=== PATIENT | male | born 2000 | race Caucasian/White ===

== ENCOUNTER 2023-03-09 13:44 | Emergency (ER) | payer MEDICAID ==
[~2023-03-09] VITALS: Ht 175.3 cm; Wt 80.7 kg
[2023-03-09 14:13] VITALS: BP 129/71; PULSE 90; RESP 18; TEMP 98.8; O2SAT 99
[2023-03-09] MEDS ORDERED: ALUMINUM HYD/MAG/SIMETHICONE 30 ML UDC PO ONE (15:20)
[2023-03-09] MEDS ORDERED: FAMOTIDINE 20 MG TAB PO ONE (15:20)
[2023-03-09 16:08] VITALS: O2SAT 99
[2023-03-09 16:11] LABS: BASOPHILS # (AUTO) 0.1 K/uL (0.00-0.22); BASOPHILS % (AUTO) 0.7 % (0.0-2.0); EOSINOPHILS % (AUTO) 0.2 % (0.0-4.0); HEMATOCRIT 48.1 % (36-52); HEMOGLOBIN 16.6 g/dL (12.0-18.0); LYMPHOCYTES % (AUTO) 18.9 % (20.5-51.1); MEAN CORPUSCULAR HEMOGLOBIN 30 pg (27-31); MEAN CORPUSCULAR HGB CONC 34 g/dL (33-37); MEAN CORPUSCULAR VOLUME 87.2 fL (80-94); MONOCYTES # (AUTO) 0.7 K/uL (0.8-1.0); MONOCYTES % (AUTO) 6.8 % (1.7-9.3); NEUTROPHILS # (AUTO) 7.7 K/uL (1.8-7.7); NEUTROPHILS % (AUTO) 73.4 % (42.2-75.2); PLATELET COUNT (AUTO) 251 K/uL (140-450); RED BLOOD CELL COUNT(AUTO) 5.52 MIL/uL (4.20-6.10); WHITE BLOOD COUNT (AUTO) 10.5 K/uL (4.8-10.8)
[2023-03-09] MEDS ORDERED: ALUMINUM HYD/MAG/SIMETHICONE 30 ML UDC ONE (16:36)
[2023-03-09] MEDS ORDERED: FAMOTIDINE 20 MG TAB ONE (16:36)
[2023-03-09 16:43] LABS: ALANINE AMINOTRANSFERASE 16 U/L (12-78); ALBUMIN 4.5 g/dL (3.4-5.0); ALKALINE PHOSPHATASE 87 U/L (50-136); ANION GAP 15.9 (8-16); ASPARTATE AMINOTRANSFERASE 22 U/L (15-37); CALCIUM 8.8 mg/dL (8.5-10.1); CARBON DIOXIDE 26.1 mmol/L (21-32); CHLORIDE 104 mmol/L (98-107); GFR ARICAN-AMERICAN 120 mL/min (>90); GFR NON ARICAN-AMERICAN 99 mL/min (>90); GLUCOSE 83 mg/dL (74-106); SODIUM SERUM 142 mmol/L (136-145); TOTAL PROTEIN, SERUM 8.1 g/dL (6.4-8.2); UREA NITROGEN, BLOOD 11 mg/dL (7-18)
[2023-03-09] MEDS ORDERED: FAMO-90 PO (17:07)
[2023-03-09] MEDS ORDERED: IBUP-2213 PO (17:07)
[2023-03-09] MEDS ORDERED: SUCR1TAB35 PO (17:07)
[2023-03-09 18:35] VITALS: BP 120/72; PULSE 88; RESP 18; TEMP 98.8; O2SAT 98
== END 2023-03-09 18:36 | disposition home or self-care (01) ==
LOC: MED 13:44
DX: R07.9 Chest pain, unspecified (principal); Z79.899 Other long term (current) drug therapy
CPT/HCPCS: 36415; 71046; 80053; 84484; 85025; 93005; 99285